=== PATIENT | male | born 1950 | race Caucasian/White ===

== ENCOUNTER 2019-09-20 11:38 | Outpatient (CLI) | payer MEDICARE, SELFPAY ==
[2019-09-20 12:09] LABS: Basophils Absolute Auto 0.1 K/mm3 (0.0-0.1); Basophils Percent Auto 0.7 % (0.2-1.2); Eosinophils Absolute Auto 0.4 K/mm3 (0-0.3); Eosinophils Percent Auto 4.3 % (0-4.4); Hematocrit 40.2 % (42.0-52.0); Hemoglobin 13.5 g/dL (14.0-18.0); Immature Granulocyte Absolute 0.05 K/mm3 (0.00-0.031); Immature Granulocyte Percent A 0.5 % (0-0.5); Lymphocytes Absolute Auto 2.62 K/mm3 (0.9-3.2); Lymphocytes Percent Auto 27.5 % (18.3-44.2); Mean Corpuscular HGB Conc 33.6 g/dl (32-36); Mean Corpuscular Hemoglobin 32.2 pg (26-34); Mean Corpuscular Volume 95.9 fl (80-100); Mean Platelet Volume 8.6 fl (7.4-10.4); Monocytes Absolute Auto 1.2 K/mm3 (0.1-0.6); Monocytes Percent Auto 12.9 % (2.6-8.5); Neutrophils Absolute Auto 5.2 K/mm3 (1.3-6.7); Neutrophils Percent Auto 54.1 % (45.5-73.1); Platelet Count Result 416 k/mm3 (150-375); Red Blood Count 4.19 M/mm3 (4.6-6.20); Red Cell Distribution Width 14.1 % (11.5-14.5); White Blood Count 9.5 K/mm3 (4.5-10.0)
[2019-09-20 12:39] LABS: Alanine Aminotransferase 17 U/L (4-50); Albumin Level 4.1 g/dL (3.5-5.1); Alkaline Phosphatase 148 U/L (38-126); Aspartate Amino Transferase 31 U/L (17-59); Bilirubin,Total 0.4 mg/dL (0.2-1.3); Blood Urea Nitrogen 29 mg/dL (9-20); Calcium 9.6 mg/dL (8.4-10.2); Carbon Dioxide 30 mmol/L (22-30); Chloride 95 mmol/L (98-107); Estimated Glomerular Filt Rate 50; Glucose 110 mg/dL (75-110); Potassium 3.8 mmol/L (3.4-5.0); Sodium 137 mmol/L (137-145)
[2019-09-21 13:19] LABS: Prostate Specific Antigen < 0.1 ng/mL (< OR = 4.0)
[2019-09-24 14:02] LABS: Testosterone Total 11 ng/dL (250-1100)
== END 2019-09-20 11:39 | disposition home or self-care (01) ==
LOC: ANHLAB 11:48
PROVIDERS: PCP Physician Assistant
DX: C61 Malignant neoplasm of prostate (principal)
CPT/HCPCS: 36415; 80053; 84153; 84403; 85025

== ENCOUNTER 2020-05-27 08:29 | Outpatient (CLI) | payer MEDICARE, SELFPAY ==
--- NOTE | ~2020-05-27 | XR_ITS ---
EXAMINATION: XR hand LT 2V DATE: 05/27/2020 09:14 INDICATION: Rheumatoid arthritis. Polyarthralgia. TECHNIQUE: 2 views of left hand were obtained. COMPARISON: None. FINDINGS: Bone alignment is normal. No fracture. Osteopenia is noted. There is mild osteoarthritis of first carpometacarpal joint, first, third, and fourth metacarpophalangeal joints, and most of the in terphalangeal joints. IMPRESSION: 1. Mild polyarticular osteoarthritis. Reviewed, dictated and finalized at location B. 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
--- NOTE | ~2020-05-27 | XR_ITS ---
EXAMINATION: XR chest 2V EXAM DATE: 05/27/2020 09:14 INDICATION: Rheumatoid arthritis. Chronic pain. Sternotomy. TECHNIQUE: Frontal and lateral projections of the chest obtained and reviewed. Comparison is made to prior examination from 10/20/2018. FINDINGS: Sternotomy wires are present without findings to suggest sternal dehiscence. There is mid thoracic compression fractures treated with methylmethacrylate. Relatively low lung volume. Some line ar atelectasis bilaterally. No confluent consolidation, pneumothorax or pleural effusion suspected. A bdominal aortic endograft. IMPRESSION: Linear perihilar subsegmental atelectasis. Reviewed, dictated and finalized at location A. [facility] OF DENTAL MEDICINE
--- NOTE | ~2020-05-27 | XR_ITS ---
EXAMINATION: XR knee LT 3V DATE: 05/27/2020 09:14 INDICATION: Rheumatoid arthritis. Polyarthralgia. TECHNIQUE: 3 views of left knee were obtained. COMPARISON: None. FINDINGS: There is lateral subluxation of tibia with respect to distal femur. No fracture. There is s evere osteoarthritis of medial and lateral compartments and moderate osteoarthritis of patellofemoral compartment. No knee joint effusion. IMPRESSION: 1. Severe left knee osteoarthritis. Reviewed, dictated and finalized at location B. 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
--- NOTE | ~2020-05-27 | XR_ITS ---
EXAMINATION: XR hand RT 2V DATE: 05/27/2020 09:14 INDICATION: Rheumatoid arthritis. Polyarthralgia. TECHNIQUE: 2 views of right hand were obtained. COMPARISON: None. FINDINGS: Bone alignment is normal. No fracture. There is diffuse osteopenia. There is mild osteoarth ritis of first carpometacarpal joint, first-third metacarpophalangeal joints, and most of the interph alangeal joints. No evidence of inflammatory arthropathy. IMPRESSION: 1. Mild polyarticular osteoarthritis. Reviewed, dictated and finalized at location B. 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
--- NOTE | ~2020-05-27 | XR_ITS ---
EXAMINATION: XR foot LT 2V, XR foot RT 2V DATE: 05/27/2020 09:14 INDICATION: Rheumatoid arthritis. Polyarthralgia. TECHNIQUE: 1. Dorsoplantar and lateral views of the left foot were obtained. 2. Dorsoplantar and lateral views of the right foot were obtained. COMPARISON: None. FINDINGS: Normal alignment at both feet. Diffuse osteopenia. No fractures. Mild osteoarthritis at the bilateral first metatarsophalangeal and multiple bilateral tarsometatarsal and interphalangeal joints. No eros ions to suggest inflammatory arthritis. IMPRESSION: 1. Mild polyarticular osteoarthritis at the bilateral fore and mid feet. Reviewed, dictated and finalized at location A. 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 Mild polyarticular osteoarthritis at the bilateral fore and mid feet.
--- NOTE | ~2020-05-27 | XR_ITS ---
EXAMINATION: XR knee RT 3V DATE: 05/27/2020 09:14 INDICATION: Rheumatoid arthritis. Polyarthralgia. TECHNIQUE: 3 views of right knee were obtained. COMPARISON: None. FINDINGS: Bone alignment is normal. No fracture. There is mild osteoarthritis of medial and patellofe moral compartments. No knee joint effusion. IMPRESSION: 1. Mild right knee osteoarthritis. Reviewed, dictated and finalized at location B. V[employer] K[employer]TLE
== END 2020-05-27 08:30 | disposition home or self-care (01) ==
PROVIDERS: PCP Physician Assistant; Visit Provider Physician Assistant
DX: M06.9 Rheumatoid arthritis, unspecified (principal); M25.50 Pain in unspecified joint; M19.071 Primary osteoarthritis, right ankle and foot; M19.072 Primary osteoarthritis, left ankle and foot; M19.041 Primary osteoarthritis, right hand; M19.042 Primary osteoarthritis, left hand; M17.0 Bilateral primary osteoarthritis of knee; R91.8 Other nonspecific abnormal finding of lung field
CPT/HCPCS: 71046; 73120; 73562; 73620

== ENCOUNTER → 2020-11-05 11:04 | Outpatient (CLI) | payer MEDICARE, SELFPAY ==
--- NOTE | ~2020-11-05 | MR_ITS ---
EXAMINATION: MR lumbar spine wo con DATE: 11/05/2020 11:45 INDICATION: Low back pain. TECHNIQUE: Magnetic resonance imaging (MRI) of the lumbar spine was performed without intravenous con trast. Sequences included sagittal T2-weighted FSE, sagittal STIR FSE, sagittal T1-weighted FSE, and axial T2-weighted FSE. COMPARISON: CT abdomen and pelvis 01/17/2015, chest 2 views 05/27/2020. FINDINGS: There is artifact from a stent graft in abdominal aorta. Bone alignment is normal. There is a burst fracture of T12 with 4/5 loss of height, bone marrow edema, and retropulsion of bone 7 mm in to central spinal canal with mild central canal stenosis. There is a burst fracture of L4 with 4/5 lo ss of height, bone marrow edema, and retropulsion of bone 6 mm into central spinal canal with severe central canal stenosis. There is a chronic compression fracture of inferior endplate of L1 with less than 1/5 loss of height. There is mildly decreased disc height at L1-L2, moderately decreased disc he ight at L2-L3, and mildly decreased disc height and L3-L4 and L4-L5. The distal spinal cord signal in tensity is normal. The conus medullaris is at L1. The following disc levels are specifically discusse d: L1-L2: The disc does not extend beyond the endplate margin. There is mild bilateral facet joint osteo arthritis. There is no neural foraminal stenosis. There is no central canal stenosis. L2-L3: The disc is bulging. There is moderate right and mild left facet joint osteoarthritis. There i s mild bilateral neural foraminal stenosis. There is mild central canal stenosis. L3-L4: The disc does not extend beyond the endplate margin. There is severe bilateral facet joint ost eoarthritis. There is mild bilateral neural foraminal stenosis. There is severe central canal stenosi s. L4-L5: The disc does not extend beyond the endplate margin. There is severe bilateral facet joint ost eoarthritis. There is mild bilateral neural foraminal stenosis. There is mild central canal stenosis. L5-S1: The disc does not extend beyond the endplate margin. There is severe bilateral facet joint ost eoarthritis. There is mild bilateral neural foraminal stenosis. There is no central canal stenosis. IMPRESSION: 1. Acute versus subacute burst fractures of T12 and L4 with severe central canal stenosis at L4. 2. Moderate lumbar spondylosis. Reviewed, dictated and finalized at location B. IMPRESSION: 1. Acute versus subacute burst fractures of T12 and L4 with severe central kelvin l stenosis at L4. 2. Moderate lumbar spondylosis.
== END ==
PROVIDERS: Visit Provider Nurse Practitioner Family
DX: M54.5 Low back pain (principal); S32.041A Stable burst fracture of fourth lumbar vertebra, initial encounter for closed fracture; S22.081A Stable burst fracture of T11-T12 vertebra, initial encounter for closed fracture; M48.061 Spinal stenosis, lumbar region without neurogenic claudication; M47.816 Spondylosis without myelopathy or radiculopathy, lumbar region
CPT/HCPCS: 72148

== ENCOUNTER 2024-04-24 10:24 | Outpatient (CLI) | payer MEDICARE, SELFPAY ==
--- NOTE | ~2024-04-24 | MR_ITS ---
MRI of the lumbar spine Clinical History: Radiculopathy Technique: Axial T2-weighted images, and sagittal T1-weighted, T2-weighted, and and T2 fat-sat images were acquired. COMPARISON: 11/05/2020 Findings: Chronic T12 compression fracture present. There is mild compression fracture of L2, chronic , though new since prior exam. There is chronic severe compression fracture of L4 with vertebroplasty cement. There is probable acute compression fracture of L5 near the inferior endplate, with loss of height in this region. There is associated probable extensive marrow edema. At L1-L2, there is no disc bulge or herniation. There is moderate facet arthropathy. No central canal stenosis or definite neural foraminal narrowing. At L2-L3, there is retropulsion with mild disc bulge and moderate facet arthropathy, resulting in mil d central canal stenosis. There is moderate left neural foraminal narrowing, and mild right neural fo raminal narrowing. At L3-L4, there is severe degenerative disc change. There is disc bulge and severe facet arthropathy, with mild retropulsion, resulting in severe spinal canal stenosis/thecal sac compression. There is m oderate bilateral neural foraminal narrowing. At L4-L5, there is moderate to advanced degenerative disc narrowing. There is severe facet arthropath y. No central canal stenosis. Probable mild right neural foraminal narrowing. Left neural foramen pre served. At L5-S1, there is no disc bulge or herniation. There is advanced facet arthropathy. No central canal stenosis or definite neural foraminal narrowing. Paravertebral soft tissues are unremarkable. Impression: Probable acute compression fracture at the inferior endplate region of L5. Additional chronic compression fractures of T12, L2, L4, as detailed above. Severe degenerative spondylosis at L3-L4, as detailed above. Additional moderate degenerative spondyl itic changes in the lumbar spine, as above. Reviewed, dictated and finalized at location M. Impression: Probable acute compression fracture at the inferior endplate region of L5. Additional chronic compression fractures of T12, L2, L4, as detailed above. Severe degenerative spondylosis at L3-L4, as detailed above. Additional moderat e degenerative spondylitic changes in the lumbar spine, as above.
--- NOTE | ~2024-04-24 | XR_ITS ---
AP view of the pelvis and AP and lateral views of the right hip Clinical history: Pain Findings: No acute fracture or dislocation is seen. Osseous alignment is anatomic. There is moderate degenerative change of both hip joints, with superior joint space narrowing and mild femoral head nec k osteophyte formation.. Aortic stent graft partially imaged. Impression: Moderate degenerative change of both hip joints. Reviewed, dictated and finalized at location M. Impression: Moderate degenerative change of both hip joints.
== END 2024-04-24 10:25 | disposition home or self-care (01) ==
LOC: MICIMG 10:26
PROVIDERS: PCP Physician Assistant; Visit Provider Nurse Practitioner Family
DX: M47.26 Other spondylosis with radiculopathy, lumbar region (principal)
CPT/HCPCS: 72148; 73502